=== PATIENT | male | born 1995 | race Caucasian/White ===

== ENCOUNTER → 2025-02-24 14:51 | Outpatient (BNVA) | payer OTHER, SELFPAY | PROVIDERS: Visit Provider Internal Medicine Cardiovascular Disease | DX: R07.9 Chest pain, unspecified (principal); I45.19 Other right bundle-branch block; Q23.81 Bicuspid aortic valve; Z79.01 Long term (current) use of anticoagulants; Z95.2 Presence of prosthetic heart valve; F17.200 Nicotine dependence, unspecified, uncomplicated | CPT/HCPCS: 93005; 99204 ==

== ENCOUNTER 2025-03-13 12:28 | Outpatient (CLI) | payer OTHER, SELFPAY ==
--- NOTE | 2025-03-13 13:30 | USCV_ITS ---
Aris Izaguirre Age: 29 Gender: M : 1995 Exam Date: 03/13/2025 13:57 Ordering Phys: Raman Parsons MD ([email or web address]) Technologist: TERESE Exam Location[place] [facility] [place]: Aortic Valve Replacement BP: 130 / 84 HR: 72 Rhythm: Sinus Technical Quality: Adequate MEASUREMENTS (Male / Female) Normal Values 2D ECHO LV Diastolic Diameter PLAX 5.2 cm 4.2 - 5.9 / 3.9 - 5.3 cm IVS Diastolic Thickness 0.8 cm 0.6 - 1.0 / 0.6 - 0.9 cm IVS Systolic Thickness 0.5 cm LVPW Diastolic Thickness 0.8 cm 0.6 - 1.0 / 0.6 - 0.9 cm LVPW Systolic Thickness 0.7 cm LVOT Diameter 1.8 cm LV Ejection Fraction 2D Teich 10.5 % LV Ejection Fraction MOD 4C 62.8 % LV Ejection Fraction MOD 2C 55.5 % LV Ejection Fraction 2C AL 59.7 % LA Diameter 2.9 cm RA Systolic Volume 4C AL 29.1 ml RA Systolic Volume 4C MOD 26.7 ml LA Sys Volume AL 32.2 cm cubed LA Sys Volume Index AL 21.3 cm cubed/m squared Aorta at Sinotubular Diameter 2.7 cm IVC Diameter 1.2 cm DOPPLER AV Peak Velocity 155.3 cm/s LVOT Peak Velocity 107.0 cm/s AV Area Cont Eq vti 1.8 cm squared AV Area Cont Eq pk 1.7 cm squared MV Peak Velocity 78.0 cm/s MV Area PHT 5.5 cm squared Mitral E to A Ratio 1.3 TV Peak Velocity 190.5 cm/s TR Peak Velocity 198.0 cm/s TR Peak Gradient 15.7 mmHg TV Peak E Velocity 70.0 cm/s PV Peak Velocity 65.0 cm/s FINDINGS Left Ventricle Normal left ventricular size, systolic function and wall thickness with no regional wall motion abnormality. Left ventricular ejection fraction is 59%. Normal left ventricular diastolic function. Right Ventricle Normal right ventricular size and systolic function. Right Atrium Normal right atrial size. Left Atrium Normal left atrial size. IA Septum Normal appearance of the interatrial septum. Mitral Valve Normal mitral valve structure. No mitral valve stenosis or regurgitation. Aortic Valve There is a bioprosthetic aortic valve replacement with no evidence of stenosis, mean PG 5 mmHg. There is mild regurgitation. Tricuspid Valve Normal tricuspid valve structure. Trace regurgitation. Normal pulmonary pressure. Pulmonic Valve Normal pulmonic valve structure. No pulmonic valve stenosis or regurgitation. Pericardium No pericardial effusion. Aorta Normal diameter of the aortic root and ascending thoracic aorta. IVC Normal IVC diameter. CONCLUSIONS Normal left ventricular size, systolic function and wall thickness with ejection fraction of 59%. Normal right ventricular size and systolic function. There is a bioprosthetic aortic valve replacement with no evidence of stenosis, mean PG 5 mmHg. There is mild regurgitation, possibly from a perivalvular leak, but the imaging available is not adequate enough to precisely localize site of regurgitation. Raman Parsons MD, FACC (Electronically Signed) Final Date: 14 March 2025 11:50 S
== END 2025-03-13 12:29 | disposition home or self-care (01) ==
PROVIDERS: Visit Provider Internal Medicine Cardiovascular Disease
DX: Z95.2 Presence of prosthetic heart valve (principal); R93.1 Abnormal findings on diagnostic imaging of heart and coronary circulation; I35.2 Nonrheumatic aortic (valve) stenosis with insufficiency
CPT/HCPCS: 93306